=== PATIENT | female | born 1935 | race Caucasian/White ===

== ENCOUNTER 2017-10-12 17:41 | Inpatient (IN) | payer MEDICARE, MEDICAID ==
[~2017-10-12] VITALS: Ht 144.8 cm; Wt 55.3 kg
[~2017-10-12 17:41] MED LIST: B COMPLEX1 TA2 PO; B12-METHYL1000 MC1 PO; BENAZEPRIL HYDR20 M1 PO; CIPRO500 MG PO; FLAGYL500 MG PO; FOS10 PO; FOSAMAX5 MG PO; HYDROCHLOROTH12.5 MG PO; LOVASTATIN40 MG PO; OYSTER CALCIUM1 TAB PO; PENTOXIFYLLINE PO; RANITIDINE300 M1 PO
[2017-10-12 18:59] LABS: microscopic required? YES; urine erythrocyte TRACE (NEGATIVE)
[2017-10-12 19:00] LABS: BASOPHIL % 1.1 % (0-2); PLATELET COUNT 341 x10^3mcL (130-400); RED CELL DISTRIBUTION WIDTH 14.2 % (11.5-14.5)
[2017-10-12 19:09] LABS: CALCIUM 8.6 mg/dL (8.5-10.1); CARBON DIOXIDE 31.3 mmol/L (21-32); CHLORIDE SERUM 95 mmol/L (98-107); CREATININE SERUM 0.9 mg/dL (0.6-1.0); GLUCOSE SERUM 164 mg/dL (74-106); POTASSIUM SERUM 3.8 mmol/L (3.5-5.1); SODIUM SERUM 133 mmol/L (136-145)
[2017-10-12 19:13] LABS: ALBUMIN 3.6 g/dL (3.4-5.0); ALKALINE PHOSPHATASE 77 U/L (46-116); ALT/SGPT 22 U/L (14-59); AMYLASE 101 U/L (25-115); AST/SGOT 24 U/L (15-37); BILIRUBIN TOTAL 0.79 mg/dL (0.20-1.00); LIPASE 298 IU/L (73-393); TOTAL PROTEIN, SERUM 7.1 g/dL (6.4-8.2)
[2017-10-12 19:15] LABS: CHOLESTEROL 130 mg/dL (<200); HDL CHOLESTEROL 63 mg/dL (40-60)
[2017-10-12 19:15] LABS: AMPHETAMINE QUAL UR NONE DETECTED (NEG <=1000)
[2017-10-12] MEDS ORDERED: BENAZEPRIL HCL/1 TAB PO ×2 (20:17→21:43)
[2017-10-12] MEDS ORDERED: LOVASTATIN40 MG PO (20:18)
[2017-10-12] MEDS ORDERED: TRE400 PO ×2 (20:18)
[2017-10-12] MEDS ORDERED: RANITIDINE HYD300 MG (20:19)
[2017-10-12 20:54] VITALS: BP 156/68
[2017-10-12 21:01] LABS: MAGNESIUM 1.8 mg/dL (1.8-2.4); PHOSPHOROUS 3.3 mg/dL (2.5-4.9)
[2017-10-12 21:05] LABS: CHOLESTEROL/HDL RATIO 2.1
[2017-10-12 21:11] LABS: T3 TOTAL 0.91 ng/mL
[2017-10-12 21:40] VITALS: BP 156/68
[2017-10-12 21:55] LABS: FREE T4 1.05 ng/dL (0.76-1.46); FREE THYROXINE INDEX 2.5 ug/dL (1.4-4.5); T4(THYROXINE) 7.6 ug/dL (4.7-13.3)
[2017-10-13 06:02] VITALS: BP 139/58
[2017-10-13 08:00] VITALS: BP 159/66
[2017-10-13 12:36] VITALS: BP 139/61
[2017-10-13 17:03] VITALS: BP 134/67
[2017-10-13 20:42] VITALS: BP 120/59
[2017-10-14 05:05] VITALS: BP 118/58
[2017-10-14 06:33] LABS: CALCIUM 8.1 mg/dL (8.5-10.1); CARBON DIOXIDE 29.2 mmol/L (21-32); CHLORIDE SERUM 104 mmol/L (98-107); CREATININE SERUM 0.8 mg/dL (0.6-1.0); GLUCOSE SERUM 89 mg/dL (74-106); MAGNESIUM 1.7 mg/dL (1.8-2.4); PHOSPHOROUS 3.1 mg/dL (2.5-4.9); POTASSIUM SERUM 4.2 mmol/L (3.5-5.1); SODIUM SERUM 136 mmol/L (136-145)
[2017-10-14 06:46] LABS: BASOPHIL % 0.5 % (0-2); PLATELET COUNT 295 x10^3mcL (130-400); RED CELL DISTRIBUTION WIDTH 14.3 % (11.5-14.5)
[2017-10-14 09:12] VITALS: BP 138/64
[2017-10-14] MEDS ORDERED: LAC PO (09:49)
[2017-10-14] MEDS ORDERED: LEVOFLOXACIN500 M1 PO (09:50)
[2017-10-14] MEDS ORDERED: FOSAMAX70 M1 PO (10:09)
[2017-10-14 11:07] VITALS: BP 138/64
[2017-10-14 13:34] VITALS: BP 103/79
== END 2017-10-14 16:40 | disposition home health service (06) | DRG 913 ==
LOC: ED 17:41 → DU 19:52 → MU 19:52 → DU 20:41 → MU 10-14 07:40
PROVIDERS: Emergency Medicine; Family Medicine; ADMIT Family Medicine
DX: S09.90XA Unspecified injury of head, initial encounter (principal); G93.41 Metabolic encephalopathy; N39.0 Urinary tract infection, site not specified; E87.1 Hypo-osmolality and hyponatremia; D68.69 Other thrombophilia; S60.212A Contusion of left wrist, initial encounter; S13.4XXA Sprain of ligaments of cervical spine, initial encounter; E11.51 Type 2 diabetes mellitus with diabetic peripheral angiopathy without gangrene; D32.0 Benign neoplasm of cerebral meninges; M47.892 Other spondylosis, cervical region; D64.9 Anemia, unspecified; M47.897 Other spondylosis, lumbosacral region; M47.895 Other spondylosis, thoracolumbar region; I10 Essential (primary) hypertension; E87.8 Other disorders of electrolyte and fluid balance, not elsewhere classified; R31.9 Hematuria, unspecified; J33.8 Other polyp of sinus; M06.9 Rheumatoid arthritis, unspecified; E78.5 Hyperlipidemia, unspecified; M19.032 Primary osteoarthritis, left wrist; Z87.891 Personal history of nicotine dependence; W18.39XA Other fall on same level, initial encounter; Y93.89 Activity, other specified; Y92.481 Parking lot as the place of occurrence of the external cause
CPT/HCPCS: 82962; 83880; 84439; 97110-GP; 97116-GP; 97530-GP; J1885; J1956; J7030; Q0092